=== PATIENT | female | born 1965 | race Caucasian/White ===

== ENCOUNTER 2018-09-14 10:20 | Day surgery (SDC) | payer MEDICARE, OTHER ==
[~2018-09-14] VITALS: Ht 165.1 cm; Wt 81.2 kg
[~2018-09-14 10:20] MED LIST: ACYC400 PO; ALBU90OI INH; Aspirin EC81 MG PO; CYCL10 PO; Cyclobenzaprine5 MG PO; DOXY100T53 PO; DULO60; Diflucan100 MG PO; ESTR2 VAG; Flovent 110 MCG12 GM INH; GABA100 PO; HYDSUL200 PO; IBUP800 PO; METO25ER PO; Macrobid 100 M100 MG PO; Nitrostat0.4 MG SL; Pyridium100 MG PO; SULF500A PO; VENL150ER PO; VITAMIN D31000 UNIT PO
== END 2018-09-14 11:56 | disposition home or self-care (01) ==
LOC: ORSCSDS 10:20
PROVIDERS: Internal Medicine Gastroenterology
PROC: 0DBM8ZX Excision of Descending Colon, Via Natural or Artificial Opening Endoscopic, Diagnostic (ICD-10-PCS; principal; 2018-09-14 11:45)
PROC: 0DBK8ZX Excision of Ascending Colon, Via Natural or Artificial Opening Endoscopic, Diagnostic (ICD-10-PCS; principal; 2018-09-14 11:45)
PROC: 0DBH8ZX Excision of Cecum, Via Natural or Artificial Opening Endoscopic, Diagnostic (ICD-10-PCS; principal; 2018-09-14 11:45)
DX: Z12.11 Encounter for screening for malignant neoplasm of colon (principal); D12.4 Benign neoplasm of descending colon; K64.8 Other hemorrhoids; Z86.010 Personal history of colon polyps; Z80.0 Family history of malignant neoplasm of digestive organs; E78.00 Pure hypercholesterolemia, unspecified; G47.33 Obstructive sleep apnea (adult) (pediatric); J45.909 Unspecified asthma, uncomplicated; F41.9 Anxiety disorder, unspecified; F32.9 Major depressive disorder, single episode, unspecified; M06.9 Rheumatoid arthritis, unspecified; Z79.899 Other long term (current) drug therapy
CPT/HCPCS: 88305; J2405; J7120

== ENCOUNTER → 2018-11-25 | Outpatient (CLI) | payer MEDICARE, OTHER ==
[2018-11-28 15:07] LABS: HPV 16 Positive (Negative); HPV 18 Negative (Negative); HPV OTHER HR TYPES Negative (Negative)
== END | disposition home or self-care (01) ==
LOC: LAB SHORT 11:59 → LAB 11:59
PROVIDERS: Obstetrics & Gynecology
DX: Z01.419 Encounter for gynecological examination (general) (routine) without abnormal findings (principal)
CPT/HCPCS: 87624; G0123

== ENCOUNTER 2019-10-26 01:16 | Emergency (ER) | payer MEDICARE, OTHER ==
[~2019-10-26] VITALS: Ht 165.1 cm; Wt 83.9 kg
[2019-10-26 03:15] LABS: BASOPHILS ABSOLUTE AUTO 0.04 K/mm3 (0.00-0.23); BASOPHILS PERCENT AUTO 1 % (0-2); EOSINOPHILS ABSOLUTE AUTO 0.18 K/mm3 (0.00-0.68); EOSINOPHILS PERCENT AUTO 3 % (0-6); Hematocrit 43.4 % (33.0-51.0); Hemoglobin 14.2 g/dL (11.5-16.0); IMMATURE GRAN ABSOLUTE AUTO 0.02 K/mm3 (0.00-0.10); IMMATURE GRAN PERCENT AUTO 0 % (0-1); LYMPHOCYTES ABSOLUTE AUTO 2.25 K/mm3 (0.84-5.20); LYMPHOCYTES PERCENT AUTO 35 % (21-46); MONOCYTES ABSOLUTE AUTO 0.48 K/mm3 (0.16-1.47); MONOCYTES PERCENT AUTO 7 % (4-13); Mean Corpuscular HGB 30.3 pg (26.0-34.0); Mean Corpuscular HGB Conc 32.7 g/dL (31.5-36.5); Mean Corpuscular Volume 93 fL (80-100); Mean Platelet Volume 9.9 fL (9.1-12.4); NEUTROPHILS ABSOLUTE AUTO 3.52 K/mm3 (1.96-9.15); NEUTROPHILS PERCENT AUTO 54 % (41-73); Platelet Count 312 K/mm3 (150-400); RDW Coefficient Variation 12.9 % (11.7-14.2); RDW Standard Deviation 43.8 fL (35.1-46.3); Red Blood Cell Count 4.68 M/mm3 (3.80-5.20); White Blood Cell Count 6.49 K/mm3 (4.00-11.30)
[2019-10-26 03:26] LABS: Alanine Aminotransfer (ALT/SGP 31 U/L (12-78); Albumin, Blood 3.8 g/dL (3.4-5.0); Alk Phos 71 U/L (50-136); Anion Gap 6 mmol/L (6-16); Aspartate Aminotrans (AST/SGOT 29 U/L (12-37); Bilirubin, Total 0.3 mg/dL (0.1-1.0); Blood Urea Nitrogen 15 mg/dL (8-24); Bun/Creatinine Ratio 19.6 (12.0-20.0); CO2, Blood 26 mmol/L (21-32); Calcium, Blood 9.1 mg/dL (8.5-10.1); Chloride, Blood 112 mmol/L (98-108); Creatinine, Blood 0.77 mg/dL (0.40-1.00); Globulin, Blood 3.7 g/dL (2.2-4.0); Glomerular Filtration Rate >60 (60-); Glucose, Blood 64 mg/dL (70-99); Potassium, Blood 3.6 mmol/L (3.5-5.5); Sodium, Blood 144 mmol/L (136-145); Total Protein, Blood 7.5 g/dL (6.4-8.2)
[2019-10-26 07:23] LABS: Source, Urine Clean Catch
[2019-10-26 07:26] LABS: Bilirubin, Urine Neg (Neg); Blood, Urine Neg (Neg); Glucose Qualitative, Urine Neg (Neg); Ketones, Urine Neg (Neg); Leukocyte Esterase, Urine 1+ (Neg); Nitrite, Urine Neg (Neg); Protein, Urine Neg (Neg); Specific Gravity, Urine 1.015 (1.003-1.022); Urobilinogen, Urine NORM (Normal)
[2019-10-26 07:31] LABS: Appearance, Urine Clear (Clear); Color, Urine Yellow (P-Yellow)
[2019-10-26 07:32] LABS: Red Blood Cells, Urine Not Seen /hpf (0-2)
[2019-10-26 07:33] LABS: Bacteria Few /hpf; Squamous Epithelial Cells Few /hpf (Few)
[2019-10-26 07:36] LABS: U Amphetamine Screen Not Detected; U Barbituate Screen Not Detected; U Benzodiazapine Screen Not Detected; U Buprenorphine Screen Not Detected; U Cannabinoids Screen DETECTED; U Cocaine Screen Not Detected; U Methadone Screen Not Detected; U Methamphetamine Screen Not Detected; U Opiates Screen Not Detected; U Oxycodone Screen Not Detected; U Phencyclidine Screen Not Detected; U Propoxyphene Screen Not Detected
== END 2019-10-26 08:10 | disposition home or self-care (01) ==
LOC: ER 01:16
PROVIDERS: Emergency Medicine
DX: R53.1 Weakness (principal); Z91.048 Other nonmedicinal substance allergy status; Z88.8 Allergy status to other drugs, medicaments and biological substances; Z91.040 Latex allergy status; Z88.6 Allergy status to analgesic agent; Z79.899 Other long term (current) drug therapy; Z79.51 Long term (current) use of inhaled steroids; Z87.891 Personal history of nicotine dependence
CPT/HCPCS: 36415; 80053; 81001; 85025; 87086; 93005; 93010; 99284-25

== ENCOUNTER 2019-10-27 07:54 | Day surgery (SDC) | payer MEDICARE, OTHER | END 2019-10-27 23:54 | disposition home or self-care (01) | LOC: MHTC 07:54 | DX: R55 Syncope and collapse (principal) | CPT/HCPCS: 33285; C1764 ==

== ENCOUNTER 2019-11-21 17:29 | Emergency (ER) | payer MEDICARE, OTHER ==
[~2019-11-21] VITALS: Ht 165.1 cm; Wt 86.2 kg
[2019-11-21] MEDS ORDERED: Roxicodone5 MG PO (20:23)
== END 2019-11-21 20:38 | disposition home or self-care (01) ==
LOC: ER 17:29
DX: R55 Syncope and collapse (principal); S70.02XA Contusion of left hip, initial encounter; Z87.891 Personal history of nicotine dependence; W01.0XXA Fall on same level from slipping, tripping and stumbling without subsequent striking against object, initial encounter; Y92.000 Kitchen of unspecified non-institutional (private) residence as the place of occurrence of the external cause
CPT/HCPCS: 73502; 99283-25; A9270

== ENCOUNTER → 2020-08-16 | Outpatient (CLI) | payer MEDICARE, OTHER ==
[~2020-08-16] MED LIST changes: +Roxicodone5 MG PO
== END | disposition home or self-care (01) ==
LOC: LAB EV 16:42 → LAB SHORT 16:42
DX: Z03.818 Encounter for observation for suspected exposure to other biological agents ruled out (principal); Z20.828 Contact with and (suspected) exposure to other viral communicable diseases
CPT/HCPCS: U0003

== ENCOUNTER → 2020-10-07 | Outpatient (CLI) | payer MEDICARE, OTHER ==
[2020-10-09 16:37] LABS: CORONAVIRUS (COVID19) CSH-NRL Negative (Negative)
== END ==
LOC: LAB 19:03 → LAB SHORT 19:03
PROVIDERS: Family Medicine
DX: Z20.828 Contact with and (suspected) exposure to other viral communicable diseases (principal)
CPT/HCPCS: U0003

== ENCOUNTER 2023-05-17 08:56 | Day surgery (SDC) | payer MEDICARE, OTHER ==
[~2023-05-17] VITALS: Ht 165.1 cm; Wt 81.2 kg
[~2023-05-17 08:56] MED LIST changes: +ARNUITY ELLIP100 MCG INH
[2023-05-17] MEDS ORDERED: VILAZODONE HCL40 MG PO (09:41)
[2023-05-17] MEDS ORDERED: TRAZ50 (09:41)
[2023-05-17 11:13] VITALS: BP 106/76
--- NOTE | 2023-05-17 11:46 | NUR ---
05/17/23 1146 JANINA JACOBO PT AWAKE, ALERT, FRIENDLY, TALKATIVE. EAT AND DRINK W/O DIFFICULTY. AMBULATED W/O DIFF. NO ISSUES WITH PT, VERY PLEASANT PT.
== END 2023-05-17 11:44 | disposition home or self-care (01) ==
LOC: ORSCSDS 08:56
PROVIDERS: Orthopaedic Surgery
PROC: 01N50ZZ Release Median Nerve, Open Approach (ICD-10-PCS; principal; 2023-05-17 10:00)
DX: G56.03 Carpal tunnel syndrome, bilateral upper limbs (principal); J44.9 Chronic obstructive pulmonary disease, unspecified; G47.33 Obstructive sleep apnea (adult) (pediatric); F41.9 Anxiety disorder, unspecified; Z79.899 Other long term (current) drug therapy
CPT/HCPCS: J0171; J0690; J1100; J1885; J2250; J2405; J2704; J2795; J3010

== ENCOUNTER 2023-06-28 07:30 | Day surgery (SDC) | payer MEDICARE, OTHER ==
[~2023-06-28] VITALS: Ht 165.1 cm; Wt 83.1 kg
[~2023-06-28 07:30] MED LIST changes: +HYDROCODONE-AC1 EA19 PO; +TRAZ50; +TRAZ50 PO; +VILAZODONE HCL40 MG PO
[2023-06-28] MEDS ORDERED: VILAZODONE HCL40 MG (07:55)
--- NOTE | 2023-06-28 09:16 | NUR ---
06/28/23 0916 Carmel Casillas 20ML OF ROPIVACAINE 0.5% MIXED AND VERIFIED WITH 0.1ML OF EPI (1MG/ML) TO MAKE ROPIVACAINE 0.5% WITH EPI 1:200,000 FOR INJECTION AT [facility] BY DR CARREON.
--- NOTE | 2023-06-28 10:02 | NUR ---
06/28/23 1002 Lela Bernard PT IN CHAIR, TOLERATING PO FLUIDS. DENIES NAUSEA AND PAIN
[2023-06-28 10:28] VITALS: BP 118/92
== END 2023-06-28 10:49 | disposition home or self-care (01) ==
LOC: ORSCSDS 07:30
PROVIDERS: Orthopaedic Surgery
PROC: 01N50ZZ Release Median Nerve, Open Approach (ICD-10-PCS; principal; 2023-06-28 08:45)
DX: G56.02 Carpal tunnel syndrome, left upper limb (principal); E78.00 Pure hypercholesterolemia, unspecified; J45.909 Unspecified asthma, uncomplicated; G47.33 Obstructive sleep apnea (adult) (pediatric); F41.8 Other specified anxiety disorders; Z79.899 Other long term (current) drug therapy
CPT/HCPCS: A9270; J0171; J0690; J1100; J2250; J2405; J2704; J2795; J3010; J7120

== ENCOUNTER 2025-08-23 19:58 | Emergency (ER) | payer MEDICARE, OTHER ==
[~2025-08-23] VITALS: Ht 162.6 cm; Wt 79.4 kg
[~2025-08-23 19:58] MED LIST changes: +CLIMARA1 EACH TOP; +PROG100 PO; +VILAZODONE HCL40 MG
[2025-08-23] MEDS ORDERED: Ondansetron HCl 2 MG / ML 2ML Vial IV ONE (20:05)
[2025-08-23] MEDS ORDERED: FentaNYL Citrate 50 MCG/ML 2 ML Injection IV ONE (20:05)
[2025-08-23 20:16] LABS: BASOPHILS ABSOLUTE AUTO 0.03 K/mm3 (0.00-0.23); BASOPHILS PERCENT AUTO 0 % (0-2); EOSINOPHILS ABSOLUTE AUTO 0.23 K/mm3 (0.00-0.68); EOSINOPHILS PERCENT AUTO 3 % (0-6); Hematocrit 36.6 % (33.0-51.0); Hemoglobin 12.4 g/dL (11.5-16.0); IMMATURE GRAN ABSOLUTE AUTO 0.02 K/mm3 (0.00-0.10); IMMATURE GRAN PERCENT AUTO 0 % (0-1); LYMPHOCYTES ABSOLUTE AUTO 2.95 K/mm3 (0.84-5.20); LYMPHOCYTES PERCENT AUTO 33 % (21-46); MONOCYTES ABSOLUTE AUTO 0.62 K/mm3 (0.16-1.47); MONOCYTES PERCENT AUTO 7 % (4-13); Mean Corpuscular HGB Conc 33.9 g/dL (31.5-36.5); Mean Corpuscular Volume 92 fL (80-100); NEUTROPHILS ABSOLUTE AUTO 5.11 K/mm3 (1.96-9.15); NEUTROPHILS PERCENT AUTO 57 % (41-73); NRBC ABSOLUTE 0.00 K/mm3 (0.00-0.02); NRBC Auto 0.0 /100 WBC (0.0-0.2); Platelet Count 287 K/mm3 (150-400); RDW Coefficient Variation 13.2 % (11.7-14.2); RDW Standard Deviation 45.0 fL (35.1-46.3)
[2025-08-23 20:42] LABS: Anion Gap 4.0 mmol/L (3-11); Blood Urea Nitrogen 20.0 mg/dL (8-24); CO2, Blood 28.0 mmol/L (21-32); Calcium, Blood 8.2 mg/dL (8.5-10.1); Chloride, Blood 109.0 mmol/L (98-108); Creatinine, Blood 0.73 mg/dL (0.40-1.00); Glucose, Blood 116.0 mg/dL (70-99); Potassium, Blood 3.8 mmol/L (3.5-5.5); Sodium, Blood 137.0 mmol/L (136-145)
[2025-08-23] MEDS ORDERED: RX Prepack 6 Tabs Oxycodone 5mg UD ONE (21:30)
[2025-08-23] MEDS ORDERED: OXYACE7.5T PO (21:34)
[2025-08-23 22:45] VITALS: BP 115/80
== END 2025-08-23 22:46 | disposition home or self-care (01) ==
LOC: ER 19:58
PROVIDERS: Emergency Medicine
DX: R55 Syncope and collapse (principal); M25.552 Pain in left hip; M19.90 Unspecified osteoarthritis, unspecified site; J45.909 Unspecified asthma, uncomplicated; Z88.8 Allergy status to other drugs, medicaments and biological substances; Z91.040 Latex allergy status; Z79.899 Other long term (current) drug therapy; Z87.891 Personal history of nicotine dependence
CPT/HCPCS: 73502; 80048; 85025; 96374; 96375; 99284-25; A9270; J2405; J3010